=== PATIENT | male | born 1965 | race American Indian/Alaskan Native ===

== ENCOUNTER 2020-12-17 13:19 | Outpatient (CLI) | payer OTHER ==
--- NOTE | 2020-12-17 16:27 | XRay Report ---
Cervical spine 3 views INDICATION: Neck pain IMPRESSION: Multilevel discogenic and uncovertebral arthropathy present within the mid cervical spine with some loss of the normal cervical lordosis. Signer Name: Ji Martell MD Signed: 12/17/2020 4:23 PM Workstation Name: [id number]
--- NOTE | 2020-12-17 16:27 | XRay Report ---
Lumbar spine 3 views INDICATION: Low back pain IMPRESSION: Mild neural foraminal narrowing at L5-S1 secondary to discogenic and facet arthropathy. T he lumbar spinal alignment is mostly unremarkable. Signer Name: Ji Martell MD Signed: 12/17/2020 4:22 PM Workstation Name: [id number]
--- NOTE | 2020-12-17 16:32 | XRay Report ---
LEFT HAND 2 VIEWS INDICATION / CLINICAL INFORMATION: LEFT HAND PAIN. COMPARISON: None available. FINDINGS: Hypertrophic spurring of the very distal radius on the dorsal side, of uncertain etiology but not tho ught to represent an acute finding. Hand appears negative. RIGHT KNEE 2 VIEWS INDICATION / CLINICAL INFORMATION: LEFT HAND PAIN. Right knee pain COMPARISON: None available. FINDINGS: No fracture or other acute abnormality. No significant degenerative change. No evidence of joint effu tyrone or hemarthrosis. Signer Name: Jah Mike MD Signed: 12/17/2020 4:28 PM Workstation Name: [id number]
== END 2020-12-17 13:20 | disposition home or self-care (01) ==
LOC: XRAY 13:19
PROVIDERS: ATTEND Internal Medicine
DX: M48.07 Spinal stenosis, lumbosacral region (principal); M76.9 Unspecified enthesopathy, lower limb, excluding foot; M77.8 Other enthesopathies, not elsewhere classified; M40.40 Postural lordosis, site unspecified; M47.816 Spondylosis without myelopathy or radiculopathy, lumbar region
CPT/HCPCS: 72040; 72100